=== PATIENT | male | born 2000 | race Caucasian/White ===

== ENCOUNTER 2018-07-18 16:02 | Emergency (ER) | payer OTHER ==
[~2018-07-18] VITALS: Ht 175.3 cm; Wt 61.2 kg
--- NOTE | ~2018-07-18 | EKG ---
[place] [address] [facility] [place] [address] ELECTROCARDIOGRAM REPORT Name: ANANDA NATION Room #: DEP Berry#: [id number] Admission: 07/18/18 Attend Phys: Discharge: 07/18/18 Date of : [birth year] Report #: [id number] THIS REPORT FOR: //name// [facility] ED Test Date: 2018-07-18 Test Time: 16:11:59 Pat Name: ANANDA NATION Department: Room: Gender: M [employer]: . : 2000 Requested By: Kurt Trent Order Number: [id number] MD: Niko Greenberg Measurements Intervals [place] Rate: 68 P: 82 [place]: 154 QRS: 74 QRSD: 103 T: 57 QT: 412 QTc: 439 Interpretive Statements Sinus rhythm Right ventricular conduction delay No previous ECG available for comparison Electronically Signed On 07-19-2018 10:09:29 CDT by Niko Greenberg [email or web address] <ELECTRONICALLY SIGNED> By: Niko Greenberg MD, [facility] 07/19/18 1009 [id number] 1611 Niko Greenberg MD, FACC /EPI
[2018-07-18] MEDS ORDERED: NOHOMEMEDICATIONS (16:05)
[2018-07-18 17:55] LABS: ABSOLUTE NEUTROPHILS 4.7 thou/uL (1.4-8.2); BASOPHILS 0.4 % (0.0-2.0); EOSINOPHILS 0.3 % (0.0-3.0); HEMATOCRIT 41.4 % (42.0-52.0); HEMOGLOBIN 14.8 gm/dL (14.0-18.0); LYMPHOCYTES 27.5 % (24.0-44.0); MCH 30.5 pg (26.0-34.0); MCHC 35.6 g/dL (28.0-37.0); MCV 85.6 fL (80.0-100.0); MONOCYTES 8.3 % (1.0-8.0); PLATELET COUNT 196 thou/uL (150-400); POLYS 63.5 % (36.0-66.0); RBC 4.84 mil/uL (4.50-6.00); RDW 12.5 % (10.5-14.5); WBC 7.4 thou/uL (4.0-11.0)
[2018-07-18 18:05] LABS: CALCIUM 9.5 mg/dL (8.5-10.1); POTASSIUM 3.4 mmol/L (3.5-5.1)
[2018-07-18 18:11] LABS: ALBUMIN 4.2 g/dL (3.4-5.0); TOTAL BILIRUBIN 0.6 mg/dL (<0.1-1.0); TOTAL PROTEIN 7.3 g/dL (6.4-8.2)
[2018-07-18 18:22] LABS: URINE BILIRUBIN NEGATIVE (Negative); URINE BLOOD NEGATIVE (Negative); URINE CLARITY CLEAR; URINE COLOR YELLOW; URINE GLUCOSE-RANDOM* NEGATIVE (Negative); URINE KETONES NEGATIVE (Negative); URINE LEUKOCYTES-REFLEX NEGATIVE (Negative); URINE NITRITE-REFLEX NEGATIVE (Negative); URINE PROTEIN (DIPSTICK) NEGATIVE (Negative); URINE UROBILINOGEN 0.2 E.U./dl (0.2-1.0)
[2018-07-18] MEDS ORDERED: BENTYL 10 MG CA10 M1 PO (18:39)
[2018-07-18 18:56] VITALS: BP 115/80
== END 2018-07-18 18:58 | disposition home or self-care (01) ==
LOC: ER 16:02
PROVIDERS: Physician Assistant
DX: R10.12 Left upper quadrant pain (principal); Z90.81 Acquired absence of spleen